=== PATIENT | female | born 1975 | race Caucasian/White ===

== ENCOUNTER 2017-10-18 15:04 | Emergency (ER) | payer SELFPAY ==
[2017-10-18 15:34] VITALS: BP 117/71; PULSE 88; TEMP 99.8; BMI 25.4
[2017-10-18] MEDS ORDERED: ACETAMINOPHEN 325 MG TABLET (FP) PO ONE (16:07)
--- NOTE | 2017-10-18 16:07 | PDOC ---
History of Present Illness - General Chief Complaint: Sore Throat Stated Complaint: COLD, CONGESTED Time Seen by Provider: 10/18/17 15:52 History Source: Patient Exam Limitations: No Limitations - History of Present Illness Initial Comments: CHIEF COMPLAINT: 41 y/o afebrile female with PMH gastritis c/o body aches, chills, cough, sore throat, earache x 4 days. HISTORY OF PRESENT ILLNESS: The patient states the symptoms started out of nowhere 4 days ago. She did not receive her flu shot this year. She denies sick contacts, n/v/d, CP, SOB, abd pain. Vital signs on arrival are notable for temp of 99.8. REVIEW OF SYSTEMS: GENERAL/CONSTITUTIONAL: Subjective fever/chills. +body aches. No weakness. No weight change. HEAD, EYES, EARS, NOSE AND THROAT: No change in vision. No ear pain or discharge. +sore throat and earache. CARDIOVASCULAR: No chest pain or shortness of breath. RESPIRATORY: +dry cough. No wheezing or hemoptysis. GASTROINTESTINAL: No nausea, vomiting, diarrhea. GENITOURINARY: No dysuria, frequency, or change in urination. MUSCULOSKELETAL: No joint or muscle swelling or pain. No neck or back pain. SKIN: No rash or easy bruising. NEUROLOGIC: No headache, vertigo, loss of consciousness, or loss of sensation. PHYSICAL EXAM: GENERAL: The patient is awake, alert, and fully oriented, in no acute distress. She is non toxic but ill appearing. HEAD: Normal with no signs of trauma. ENT: Pupils equal, round and reactive to light, extraocular movements intact, sclera anicteric, conjunctiva clear. Posterior pharyngeal erythema without tonsilar edema or exudate. TMs normal b/l. LUNGS: Clear to auscultation bilaterally. Normal excursion. No respiratory distress or use of accessory muscles. CV: RRR, S1/S2, no MRG. Cap refill < 2 sec. ABDOMEN: Soft, non-distended, non-tender even to deep palpation, no hepatomegaly or splenomegaly, no masses. EXTREMITIES: Normal range of motion, no edema. NEUROLOGICAL: Normal speech, normal gait. CN II-XII grossly intact. PSYCH: Normal mood, normal affect. SKIN: Warm, dry, normal turgor, no rashes or lesions noted. Past History - Past Medical History Allergies/Adverse Reactions: Allergies Allergy/AdvReac Type Severity Reaction Status Date / Time No Known Allergies Allergy Verified 10/18/17 15:31 Home Medications: Ambulatory Orders No Home Medications 0 dose .ROUTE UTDICT 09/24/12 COPD: No - Suicide/Smoking/Psychosocial Hx Smoking Status: No Smoking History: Never smoked Have you smoked in the past 12 months: No Number of Cigarettes Smoked Daily: 0 Information on smoking cessation initiated: No Hx Alcohol Use: No Drug/Substance Use Hx: No *Physical Exam - Vital Signs Last Vital Signs Temp Pulse Resp BP Pulse Ox 99.8 F H 88 20 117/71 99 10/18/17 15:31 10/18/17 15:31 10/18/17 15:31 10/18/17 15:31 10/18/17 15:31 Medical Decision Making - Medical Decision Making A/P: 41 y/o female with symptoms of the flu who is outside of the flu window. Gave patient supportive care instructions and suggested she return to the ER with any worsening or concerning symptoms. The patient verbalizes understanding of all instructions, has no further questions and is awaiting discharge. *DC/Admit/Observation/Transfer Diagnosis at time of Disposition: Influenza - Discharge Dispostion Disposition: HOME Condition at time of disposition: Good - Referrals - Patient Instructions Printed Discharge Instructions: DI for Influenza -- Adult Additional Instructions: Discharge Instructions: -You have the flu -Please take 650mg of Tylenol every 4 hours for body aches and chills -Gargle with warm salt water for sore throat -Eat cold/soft foods -Get plenty of rest -Return to the ER with any worsening or concerning symptoms Instrucciones de descarga: -Usted tiene la gripe -Por favor, tome 650 mg de Tylenol cada 4 horas para newton en el cuerpo y escalofros. -Gargle con agua salada tibia para el dolor de garganta -[place] alimentos fros / suaves - Descanse mucho -Volver a la nadia de urgencias con cualquier empeoramiento o sntomas Print Language: TONGAN - Post Discharge Activity
[2017-10-18] MEDS ORDERED: ACETAMINOPHEN 325 MG TABLET (FP) ONE (16:08)
== END 2017-10-18 16:09 | disposition home or self-care (01) ==
LOC: JERFT 15:04
DX: J11.1 Influenza due to unidentified influenza virus with other respiratory manifestations (principal)
CPT/HCPCS: 99281-25

== ENCOUNTER 2023-08-17 15:55 | Observation (INO) | payer OTHER ==
[2023-08-17 16:01] VITALS: BMI 27.7
[2023-08-17] MEDS ORDERED: FAMOTIDINE 20 MG/50 ML IVPB 20 MG/50 ML MG IVPB ONE ×2 (17:07→17:28)
[2023-08-17] MEDS ORDERED: ACETAMINOPHEN 1000 MG/100 ML BAG IVPB ONE (17:07)
[2023-08-17] MEDS ORDERED: MAG HYDROX/AL HYDROX/SIMETH 30 ML UNIT-DOSE CUP PO ONE (17:08)
[2023-08-17] MEDS ORDERED: MAG HYDROX/AL HYDROX/SIMETH 30 ML UNIT-DOSE CUP ONE (17:28)
[2023-08-17] MEDS ORDERED: ACETAMINOPHEN INJECTION 100 ML IVPB ONE (17:28)
[2023-08-17 18:04] LABS: BASO % 0.2 % (0-2.0); EOS % 0.8 % (0-4.5); HEMATOCRIT 40.7 % (32.4-45.2); HEMOGLOBIN 13.3 GM/dL (10.7-15.3); LYMPH % 14.3 % (8-40); MCHC 32.8 g/dl (32.0-36.0); MEAN CELL VOLUME 91.4 fl (80-96); MEAN PLT VOLUME 9.4 fl (7.5-11.1); MONO % 3.5 % (3.8-10.2); NEUT % 81.2 % (42.8-82.8); PLATELET COUNT 235 10^3/uL (134-434); RBC 4.45 M/mm3 (3.60-5.2); RDW 13.3 % (11.6-15.6); WHITE BLOOD COUNT 11.1 K/mm3 (4.0-10.0)
[2023-08-17 18:12] LABS: POTASSIUM 4.6 mmol/L (3.5-5.1)
[2023-08-17 18:14] LABS: CALCIUM 8.7 mg/dL (8.5-10.1)
[2023-08-17 18:15] LABS: ALBUMIN 3.6 g/dl (3.4-5.0); BLOOD UREA NITROGEN 14.2 mg/dL (7-18)
[2023-08-17 18:18] LABS: CREATININE 0.7 mg/dL (0.55-1.3)
[2023-08-17 18:20] LABS: BILIRUBIN,TOTAL 0.4 mg/dL (0.2-1); TOT PROT 7.5 g/dl (6.4-8.2)
[2023-08-17] MEDS ORDERED: ASPIRIN 81 MG CHEWABLE TABLETS PO ONE (22:16)
[2023-08-17] MEDS ORDERED: ASPIRIN 81 MG CHEWABLE TABLETS ONE (23:18)
[2023-08-18 08:48] LABS: CHOLESTEROL 178 mg/dL (50-200)
[2023-08-18 08:49] LABS: LDL CHOLESTEROL (ONLY SJRH) 123 mg/dL (5-100)
[2023-08-18 08:51] LABS: HDL CHOLESTEROL 41 mg/dL (40-60)
[2023-08-18] MEDS: ENOXAPARIN NA (PORCINE) 40 MG/0.4 ML DISP.SYRIN SQ SCH (10:25)
[2023-08-18] MEDS: ASPIRIN COATED 81 MG TABLET.EC PO SCH (10:25)
[2023-08-19 05:51] LABS: URINE APPEARANCE CLEAR; URINE BILIRUBIN NEGATIVE (NEGATIVE); URINE COLOR YELLOW; URINE GLUCOSE (UA) NEGATIVE (NEGATIVE); URINE KETONE NEGATIVE (NEGATIVE); URINE LEUK ESTERASE NEGATIVE (NEGATIVE); URINE NITRITE NEGATIVE (NEGATIVE); URINE PROTEIN NEGATIVE (NEGATIVE); URINE UROBILINOGEN 0.2 mg/dL (0.2-1.0)
[2023-08-19 08:10] LABS: HEMATOCRIT 39.7 % (32.4-45.2); HEMOGLOBIN 13.5 GM/dL (10.7-15.3); MCH 31.2 pg (25.7-33.7); MCHC 33.9 g/dl (32.0-36.0); MEAN PLT VOLUME 10.5 fl (7.5-11.1); PLATELET COUNT 215 10^3/uL (134-434); RBC 4.32 M/mm3 (3.60-5.2); RDW 13.2 % (11.6-15.6); WHITE BLOOD COUNT 5.4 K/mm3 (4.0-10.0)
[2023-08-19 08:52] LABS: POTASSIUM 4.6 mmol/L (3.5-5.1)
[2023-08-19 09:11] LABS: ALBUMIN 3.7 g/dl (3.4-5.0); BLOOD UREA NITROGEN 17.6 mg/dL (7-18); CALCIUM 9.2 mg/dL (8.5-10.1)
[2023-08-19 09:14] LABS: CREATININE 0.6 mg/dL (0.55-1.3); PHOSPHOROUS 4.6 mg/dL (2.5-4.9)
[2023-08-19 09:16] LABS: BILIRUBIN,TOTAL 0.3 mg/dL (0.2-1); TOT PROT 7.3 g/dl (6.4-8.2)
[2023-08-19] MEDS: ENOXAPARIN NA (PORCINE) 40 MG/0.4 ML DISP.SYRIN SQ SCH (12:16)
[2023-08-19] MEDS: ASPIRIN COATED 81 MG TABLET.EC PO SCH (12:16)
[2023-08-19 14:32] VITALS: BP 111/67; PULSE 62; RESP 18; TEMP 97.7
== END 2023-08-19 15:20 | disposition home or self-care (01) ==
LOC: JER 15:55 → JERBED 22:31
PROVIDERS: ADMIT Internal Medicine; ATTEND Internal Medicine
PROC: 3E033NZ Introduction of Analgesics, Hypnotics, Sedatives into Peripheral Vein, Percutaneous Approach (ICD-10-PCS; principal; 2023-08-17)
PROC: 3E023GC Introduction of Other Therapeutic Substance into Muscle, Percutaneous Approach (ICD-10-PCS; 2023-08-17)
PROC: 3E033GC Introduction of Other Therapeutic Substance into Peripheral Vein, Percutaneous Approach (ICD-10-PCS; 2023-08-17)
DX: F41.1 Generalized anxiety disorder (principal); R77.8 Other specified abnormalities of plasma proteins; R07.9 Chest pain, unspecified; R07.89 Other chest pain
CPT/HCPCS: 36415; 71045-TC-FY; 78452-TC; 80053; 80061; 81003; 83036; 83735; 84100; 84439; 84443; 84484; 84703; 85025; 85027; 85379; 87086; 93005; 93010; 93017; 93306-TC; 96365; 96372; 96375; 99285-25; A9502; G0378